=== PATIENT | male | born 1960 | race Native Hawaiian/Other Pacific Islander ===

== ENCOUNTER 2019-04-28 10:57 | Inpatient (IN) | payer BC ==
[~2019-04-28] VITALS: Ht 180.3 cm; Wt 116.3 kg
[2019-04-28 11:13] VITALS: BP 144/78; TEMP 99.7
[2019-04-28 11:47] LABS: PLATELET COUNT 546 K/uL (142-355)
[2019-04-28 11:50] LABS: POTASSIUM 3.5 mmol/L (3.6-5.2)
[2019-04-28 12:01] LABS: PARTIAL THROMBOPLASTIN TIME 25.3 SECONDS (24.5-33.6)
[2019-04-28 14:57] VITALS: BP 122/63; TEMP 98.4; Ht 180.3 cm; Wt 116.3 kg
[2019-04-28 16:00] VITALS: BP 122/63; TEMP 98.4
[2019-04-28 20:00] VITALS: BP 147/66; TEMP 99.8
[2019-04-29] VITALS: BP 127/68; TEMP 99
[2019-04-29 04:00] VITALS: BP 121/67; TEMP 99.1
[2019-04-29 05:09] LABS: PLATELET COUNT 442 K/uL (142-355)
[2019-04-29 05:35] LABS: POTASSIUM 3.8 mmol/L (3.6-5.2)
[2019-04-29 08:00] VITALS: BP 123/68; TEMP 98.1
[2019-04-29 12:00] VITALS: BP 126/68; TEMP 98.9
[2019-04-29 16:00] VITALS: BP 131/63; TEMP 98.9
[2019-04-29 20:00] VITALS: BP 128/61; TEMP 98.4
[2019-04-30] VITALS: BP 127/70; TEMP 98.2
[2019-04-30 04:00] VITALS: BP 126/73; TEMP 98.3
[2019-04-30 08:00] VITALS: BP 130/78; TEMP 97.6
[2019-04-30 12:00] VITALS: BP 131/73; TEMP 98.1
[2019-04-30 13:48] LABS: PLATELET COUNT 480 K/uL (142-355)
[2019-04-30 16:00] VITALS: BP 131/73; TEMP 98.1
[2019-04-30 20:00] VITALS: BP 129/67; TEMP 99.4
[2019-05-01] VITALS: BP 111/67; TEMP 98.2
[2019-05-01 04:00] VITALS: BP 125/74; TEMP 97.7
[2019-05-01 05:31] LABS: POTASSIUM 3.5 mmol/L (3.6-5.2)
[2019-05-01 06:15] LABS: PLATELET COUNT 491 K/uL (142-355)
[2019-05-01 08:00] VITALS: BP 140/93; TEMP 97.5
[2019-05-01 12:00] VITALS: BP 138/83; TEMP 97.8
[2019-05-01 16:00] VITALS: BP 130/68; TEMP 97.7
[2019-05-01 20:00] VITALS: BP 119/76; TEMP 98.6
[2019-05-02] VITALS (7 sets, daily range): BP systolic 117–157; BP diastolic 64–83; TEMP 97.8–98.5
[2019-05-02 05:48] LABS: PLATELET COUNT 500 K/uL (142-355)
[2019-05-03 00:01] VITALS: BP 143/82; TEMP 97.6
[2019-05-03 04:00] VITALS: BP 154/84; TEMP 97.7
[2019-05-03 06:01] LABS: PLATELET COUNT 552 K/uL (142-355)
[2019-05-03 08:00] VITALS: BP 151/82; TEMP 98.4
[2019-05-03 12:00] VITALS: BP 157/89; TEMP 97.5
[2019-05-03] MEDS ORDERED: 904272561 PO (14:40)
[2019-05-03] MEDS ORDERED: AMOX500T5 PO (14:40)
== END 2019-05-03 16:36 | disposition home or self-care (01) | DRG 603 ==
LOC: ED 10:57 → MED/SURG 12:22
PROVIDERS: Internal Medicine; ADMIT Hospitalist
DX: L03.115 Cellulitis of right lower limb (principal); E87.1 Hypo-osmolality and hyponatremia; D72.828 Other elevated white blood cell count
CPT/HCPCS: 36415; 80048; 80202; 83605; 85027; 85379; 85610; 85730; 87040; 87070; 87077; 87185; 87186; 87205; 96360; 96365; 96375; 99284; J1885; J1956; J2270; J2405; J2543; J3370; J3490

== ENCOUNTER 2022-08-06 16:07 | Emergency (ER) | payer BC ==
[~2022-08-06] VITALS: Ht 177.8 cm; Wt 108.0 kg
[~2022-08-06 16:07] MED LIST: 904272561 PO; AMOX500T5 PO
[2022-08-06 16:24] VITALS: BP 156/88; TEMP 97.1
[2022-08-06 17:18] LABS: PLATELET COUNT 293 K/uL (142-355)
[2022-08-06 17:25] LABS: POTASSIUM 3.9 mmol/L (3.6-5.2)
== END 2022-08-06 19:28 | disposition home or self-care (01) ==
LOC: ED 16:07
PROVIDERS: Internal Medicine
DX: S80.02XA Contusion of left knee, initial encounter (principal); R07.89 Other chest pain; R10.9 Unspecified abdominal pain
CPT/HCPCS: 80053; 81002; 85027; 96372; 99283; J1100; J1885

== ENCOUNTER 2022-11-06 09:31 | Emergency (ER) | payer BC ==
[~2022-11-06] VITALS: Ht 177.8 cm; Wt 106.6 kg
[2022-11-06 12:15] VITALS: BP 169/81; TEMP 98.2
== END 2022-11-06 12:15 | disposition home or self-care (01) ==
LOC: ED 09:31
DX: M70.52 Other bursitis of knee, left knee (principal); M71.22 Synovial cyst of popliteal space [Baker], left knee
CPT/HCPCS: 96372; 99283; J1100; J1885

== ENCOUNTER 2022-12-06 15:51 | Emergency (ER) | payer BC ==
[~2022-12-06] VITALS: Ht 175.3 cm; Wt 111.1 kg
[2022-12-06 17:10] VITALS: BP 158/81; TEMP 98.3
== END 2022-12-06 17:10 | disposition home or self-care (01) ==
LOC: ED 15:51
DX: M25.562 Pain in left knee (principal); L03.115 Cellulitis of right lower limb
CPT/HCPCS: 96372; 99283; J1100; J1885